=== PATIENT | female | born 1985 | race Caucasian/White ===

== ENCOUNTER 2021-05-01 18:00 | Emergency (ER) | payer OTHER ==
[2021-05-01] MEDS ORDERED: Lidocaine 1% w/Epinephrine 1:100K 20 ML VIAL ONE (18:40)
== END 2021-05-01 19:01 | disposition home or self-care (01) ==
LOC: CSHERS 18:00
DX: L02.31 Cutaneous abscess of buttock (principal); K21.9 Gastro-esophageal reflux disease without esophagitis; Z79.899 Other long term (current) drug therapy
CPT/HCPCS: 10060

== ENCOUNTER 2023-08-20 23:26 | Day surgery (SDC) | payer OTHER ==
[2023-08-21] MEDS ORDERED: Acetaminophen 500 MG TAB PO SCH (01:15)
== END 2023-08-21 02:34 | disposition home or self-care (01) ==
LOC: CSHLD/OP 23:26
PROVIDERS: ATTEND Obstetrics & Gynecology
DX: O99.891 Other specified diseases and conditions complicating pregnancy (principal); M54.50 Low back pain, unspecified; O41.8X20 Other specified disorders of amniotic fluid and membranes, second trimester, not applicable or unspecified; O44.02 Complete placenta previa NOS or without hemorrhage, second trimester; O99.342 Other mental disorders complicating pregnancy, second trimester; F41.9 Anxiety disorder, unspecified; F32.A Depression, unspecified; O99.012 Anemia complicating pregnancy, second trimester; N60.91 Unspecified benign mammary dysplasia of right breast; O92.29 Other disorders of breast associated with pregnancy and the puerperium; Z79.899 Other long term (current) drug therapy; Z90.49 Acquired absence of other specified parts of digestive tract; Z88.8 Allergy status to other drugs, medicaments and biological substances; Z88.2 Allergy status to sulfonamides; Z31.83 Encounter for assisted reproductive fertility procedure cycle; Z3A.27 27 weeks gestation of pregnancy
CPT/HCPCS: 76817

== ENCOUNTER 2023-10-18 19:03 | Day surgery (SDC) | payer OTHER ==
[2023-10-18 19:30] VITALS: BMI 41.1
[2023-10-18] MEDS ORDERED: hydrALAZINE 20 MG/ML VIAL SLOW IVP PRN (20:33)
== END 2023-10-18 23:30 | disposition home or self-care (01) ==
LOC: CSHLD/OP 19:03
PROVIDERS: ATTEND Advanced Practice Midwife
DX: O9A.213 Injury, poisoning and certain other consequences of external causes complicating pregnancy, third trimester (principal); O47.03 False labor before 37 completed weeks of gestation, third trimester; O09.813 Supervision of pregnancy resulting from assisted reproductive technology, third trimester; O99.613 Diseases of the digestive system complicating pregnancy, third trimester; K21.9 Gastro-esophageal reflux disease without esophagitis; O99.343 Other mental disorders complicating pregnancy, third trimester; F41.9 Anxiety disorder, unspecified; F32.A Depression, unspecified; O99.519 Diseases of the respiratory system complicating pregnancy, unspecified trimester; J45.909 Unspecified asthma, uncomplicated; O36.63X0 Maternal care for excessive fetal growth, third trimester, not applicable or unspecified; O09.523 Supervision of elderly multigravida, third trimester; O34.13 Maternal care for benign tumor of corpus uteri, third trimester; O69.89X0 Labor and delivery complicated by other cord complications, not applicable or unspecified; O40.3XX0 Polyhydramnios, third trimester, not applicable or unspecified; Z3A.36 36 weeks gestation of pregnancy; Z87.59 Personal history of other complications of pregnancy, childbirth and the puerperium; Z79.82 Long term (current) use of aspirin; Z79.899 Other long term (current) drug therapy; Z90.49 Acquired absence of other specified parts of digestive tract; Z98.890 Other specified postprocedural states; Z88.2 Allergy status to sulfonamides; Z88.8 Allergy status to other drugs, medicaments and biological substances
CPT/HCPCS: 76819; 99282

== ENCOUNTER 2023-11-10 18:00 | Inpatient (IN) | payer OTHER ==
[2023-11-10 18:32] VITALS: BMI 41.6
[2023-11-10] MEDS ORDERED: Methylergonovine 0.2 MG/ML VIAL IM PRN (20:00)
[2023-11-10] MEDS ORDERED: Lidocaine 1% (PF) 30 ML VIAL SC PRN (20:00)
[2023-11-10] MEDS ORDERED: Misoprostol 200 MCG TAB PR PRN (20:00)
[2023-11-10] MEDS ORDERED: Diphenoxylate HCl/Atropine Tablet PO PRN ×2 (20:00)
[2023-11-10] MEDS ORDERED: HYDROcodone/Acetaminophen 5/325 mg Tablet PO PRN (20:00)
[2023-11-10] MEDS ORDERED: Carboprost 250 MCG/ML AMP IM PRN (20:00)
[2023-11-10] MEDS ORDERED: Tranexamic Acid 1,000 MG/10 ML VIAL IVP PRN (20:00)
[2023-11-10] MEDS ORDERED: Butorphanol Tartrate 1 MG/ML VIAL SLOW IVP PRN (20:00)
[2023-11-10] MEDS ORDERED: Ibuprofen 800 MG TAB PO PRN (20:00)
[2023-11-10] MEDS ORDERED: Oxytocin 30 units/NS 500 ML 500 ML IV SCH (20:00)
[2023-11-10] MEDS ORDERED: hydrALAZINE 20 MG/ML VIAL SLOW IVP PRN (20:00)
[2023-11-10] MEDS: Lactated Ringer's 1,000 ML IV SCH (20:22)
[2023-11-10] MEDS: Misoprostol 100 MCG TAB VAG SCH (20:22)
[2023-11-10 20:33] LABS: Hematocrit 35.2 % (34.9-44.5); Hemoglobin 11.8 g/dL (12.0-15.5); Mean Corpuscular HGB CONC 33.5 g/dL (32.0-36.0); Mean Corpuscular Hemoglobin 29.1 pg (27.0-33.0); Mean Corpuscular Volume 86.9 fL (81.6-98.3); Mean Platelet Volume 10.1 fL (7.4-10.4); Platelet Count 300 10x3/uL (150-450); RBC Distribution Width 13.4 % (11.5-14.5); Red Blood Cell (RBC) Count 4.05 10x6/uL (3.90-5.03); White Blood Cell (WBC) Count 10.8 10x3/uL (3.5-10.5)
[2023-11-10 20:41] LABS: ALT (SGPT) 26 U/L (8-55); AST (SGOT) 25 U/L (5-34); Albumin 2.4 g/dL (3.5-5.0); Alkaline Phosphatase 131 U/L (40-110); Anion Gap 13 mmol/L (10-20); BUN (Urea Nitrogen) 12 mg/dL (7.0-18.7); Bilirubin, Total 0.3 mg/dL (0.2-1.2); Calc. Creatinine Clearance 205 mL/min (70-130); Calcium 9.6 mg/dL (7.8-10.44); Carbon Dioxide 20 mmol/L (22-29); Chloride 105 mmol/L (98-107); Estimated GFR 114; Glucose 109 mg/dL (70-105); Potassium 3.9 mmol/L (3.5-5.1); Protein, Total 6.4 g/dL (6.0-8.3); Sodium 134 mmol/L (136-145)
[2023-11-10] MEDS: HYDROcodone/Acetaminophen 5/325 mg Tablet PO PRN (20:46)
[2023-11-10 22:06] LABS: Syphilis Antibody Nonreactive (Nonreactive); Syphilis Antibody Index 0.05 S/CO (<1.00 Non-Reactive)
[2023-11-10 22:08] LABS: HBsAg Index 0.18 S/CO (0-0.99); Hep B Surf Ag - L&D Non-Reactive S/CO (NonReactive)
[2023-11-10] MEDS: Pantoprazole DR 40 MG TAB PO SCH (22:45)
[2023-11-10] MEDS: Escitalopram Oxalate 10 mg Tablet PO SCH (22:46)
[2023-11-11] MEDS: Acetaminophen 325 MG TAB PO SCH (01:17)
[2023-11-11] MEDS ORDERED: HYDROcodone/Acetaminophen 5/325 mg Tablet PO PRN (09:14)
[2023-11-11] MEDS: HYDROcodone/Acetaminophen 5/325 mg Tablet PO PRN (10:17)
[2023-11-11] MEDS: BuPROPion XL 150 MG ER.TAB PO SCH (10:57)
[2023-11-11] MEDS: Misoprostol 100 MCG TAB VAG SCH (10:59)
[2023-11-11] MEDS: Pantoprazole DR 40 MG TAB PO SCH (12:22)
[2023-11-11] MEDS: Oxytocin 30 units/NS 500 ML 500 ML IV SCH (14:30)
[2023-11-11] MEDS: Ondansetron PF 4 MG/2 ML Vial IVP PRN (15:03)
[2023-11-12] MEDS: fentaNYL/Ropivacaine Epidural 100 ML ONE (00:47)
[2023-11-12] MEDS ORDERED: Moisturizing Cream (Eucerin) 113 GM JAR TOP PRN ×2 (00:51→09:09)
[2023-11-12] MEDS ORDERED: Ondansetron PF 4 MG/2 ML Vial IVP PRN ×3 (00:51→09:09)
[2023-11-12] MEDS ORDERED: Promethazine HCl 25 MG/ML VIAL IM PRN (00:51)
[2023-11-12] MEDS ORDERED: diphenhydrAMINE 50 MG/ML VIAL IVP PRN ×2 (00:51→09:09)
[2023-11-12] MEDS ORDERED: Naloxone HCl 0.4 mg/ml Vial IVP PRN ×4 (00:51→09:09)
[2023-11-12] MEDS ORDERED: Acetaminophen 325 MG TAB PO PRN (00:51)
[2023-11-12] MEDS ORDERED: ePHEDrine Sulfate 50 MG/10 ML VIAL SLOW IVP PRN (00:51)
[2023-11-12] MEDS ORDERED: Lactated Ringer's 500 ML IV PRN (00:51)
[2023-11-12] MEDS ORDERED: Communication Order-Pharmacy FS SCH ×2 (01:00→09:15)
[2023-11-12] MEDS ORDERED: fentaNYL 2 mcg/Ropivacaine 0.2% Epidural 100 ML CADD EPIDURAL SCH (01:00)
[2023-11-12] MEDS ORDERED: Bicitra 30 ML UDCUP PO PRN (07:05)
[2023-11-12] MEDS ORDERED: Famotidine/PF 20 mg/2ml Vial SLOW IVP PRN (07:05)
[2023-11-12 07:12] LABS: Analyzer IN Cardio CS NICU; RapidComm Collect By CBN
[2023-11-12] MEDS ORDERED: Azithromycin 500 MG in Sodium Chloride 0.9% 250 ML 250 ML IVPB SCH (07:15)
[2023-11-12] MEDS ORDERED: CEFAZOLIN 2 GM in Sodium Chloride 0.9% 100 ML IVPB SCH (07:15)
[2023-11-12 07:18] LABS: Analyzer IN Cardio CS NICU; RapidComm Collect By CBN
[2023-11-12] MEDS ORDERED: Pantoprazole DR 40 MG TAB PO SCH (09:00)
[2023-11-12] MEDS ORDERED: Morphine 4 MG/ML VIAL SLOW IVP PRN (09:09)
[2023-11-12] MEDS ORDERED: fentaNYL 50 mcg/mL 1 mL Vial SLOW IVP PRN (09:09)
[2023-11-12] MEDS ORDERED: Naloxone HCl 0.4 mg/ml Vial IV PRN (09:09)
[2023-11-12] MEDS ORDERED: Meperidine HCl/PF 25 MG (1 mL) VIAL SLOW IVP PRN (09:09)
[2023-11-12] MEDS ORDERED: Ketorolac Tromethamine 30 MG (1 mL) VIAL IVP SCH (09:15)
[2023-11-12 10:12] LABS: D-Dimer Test 2.92 mcg/mL (0.19-0.50); PTT 28.5 sec (22.0-33.0); Prothrombin Time 10.4 sec (9.5-12.1)
[2023-11-12] MEDS ORDERED: diphenhydrAMINE 25 MG CAP PO PRN (11:22)
[2023-11-12] MEDS ORDERED: Bisacodyl 10 MG SUPP PR PRN (11:22)
[2023-11-12] MEDS ORDERED: hydrALAZINE 20 MG/ML VIAL SLOW IVP PRN (11:22)
[2023-11-12] MEDS ORDERED: Lanolin Ointment 7 GM TUBE TOP PRN (11:22)
[2023-11-12] MEDS: Pantoprazole DR 40 MG TAB PO SCH (12:37)
[2023-11-12] MEDS: Azithromycin 500 MG VIAL ONE (12:37)
[2023-11-12] MEDS: Misoprostol 200 MCG TAB ONE (12:37)
[2023-11-12] MEDS: CEFAZOLIN 2 GM VIAL ONE (12:37)
[2023-11-12] MEDS: Dexamethasone 4 mg/ml Vial ONE (12:37)
[2023-11-12] MEDS: Carboprost 250 MCG/ML AMP ONE (12:37)
[2023-11-12] MEDS: Methylergonovine 0.2 MG/ML VIAL ONE (12:37)
[2023-11-12] MEDS: Escitalopram Oxalate 10 mg Tablet PO SCH ×2 (12:37→21:56)
[2023-11-12] MEDS: Tranexamic Acid 1,000 MG/10 ML VIAL ONE (12:38)
[2023-11-12] MEDS: Oxytocin 10 UNITS/ML VIAL ONE (12:38)
[2023-11-12] MEDS: Morphine PF 10 MG/10 ML VIAL ONE (12:38)
[2023-11-12] MEDS: Boostrix 0.5 ML (Tdap) VIAL (>/=7 yrs of age) IM ONE (12:38)
[2023-11-12] MEDS: Docusate 100 MG CAP PO SCH ×2 (12:38→21:35)
[2023-11-12] MEDS: PHENYLEPHRINE-NS 100 MCG/ML 10 ML SYRINGE ONE (12:38)
[2023-11-12] MEDS: Ferrous Sulfate 325 MG TAB PO SCH ×2 (12:38→21:34)
[2023-11-12] MEDS: BuPROPion XL 150 MG ER.TAB PO SCH (12:39)
[2023-11-12] MEDS: Prenatal Vitamin 1 TAB PO SCH (12:39)
[2023-11-12] MEDS: Ondansetron PF 4 MG/2 ML Vial ONE (12:41)
[2023-11-12] MEDS ORDERED: Bupivacaine PF 0.5% 30 ML VIAL ONE (13:00)
[2023-11-12] MEDS ORDERED: Lidocaine 2% MPF 10 ML AMP (For Epidural Use) ONE (13:00)
[2023-11-12] MEDS: Enoxaparin 40 MG (0.4 mL) SYRINGE SC SCH (16:11)
[2023-11-12] MEDS: Ketorolac Tromethamine 30 MG (1 mL) VIAL IVP PRN (16:16)
[2023-11-12] MEDS ORDERED: HYDROcodone/Acetaminophen 5/325 mg Tablet PO PRN (21:15)
[2023-11-13 03:57] LABS: Hematocrit 29.9 % (34.9-44.5); Hemoglobin 10.4 g/dL (12.0-15.5); Mean Corpuscular HGB CONC 34.8 g/dL (32.0-36.0); Mean Corpuscular Hemoglobin 30.6 pg (27.0-33.0); Mean Corpuscular Volume 87.9 fL (81.6-98.3); Platelet Count 241 10x3/uL (150-450); RBC Distribution Width 13.2 % (11.5-14.5); White Blood Cell (WBC) Count 18.4 10x3/uL (3.5-10.5)
[2023-11-13] MEDS: Prenatal Vitamin 1 TAB PO SCH (08:40)
[2023-11-13] MEDS: HYDROcodone/Acetaminophen 5/325 mg Tablet PO PRN (08:53)
[2023-11-13] MEDS: Ondansetron PF 4 MG/2 ML Vial IVP PRN (10:09)
[2023-11-13] MEDS: Simethicone Chewable 80 MG TAB PO PRN (13:14)
[2023-11-13] MEDS: Ibuprofen 800 MG TAB PO SCH (13:15)
[2023-11-13] MEDS: Enoxaparin 40 MG (0.4 mL) SYRINGE SC SCH (21:15)
[2023-11-14] MEDS: Polyethylene Glycol 3350 17 GM Packet PO SCH ×3 (08:47→21:51)
[2023-11-14] MEDS: Senokot 8.6 MG TAB PO SCH (08:47)
[2023-11-14] MEDS: Loratadine 10 MG TAB PO PRN (12:14)
[2023-11-14] MEDS: Famotidine 20 MG TAB PO PRN (14:07)
[2023-11-14] MEDS: Lactated Ringer's 1,000 ML IV SCH (16:41)
[2023-11-14] MEDS: Acetaminophen 500 MG TAB PO SCH (16:48)
[2023-11-14] MEDS: Senokot S 8.6-50 MG TAB PO SCH (21:51)
[2023-11-14] MEDS: Ketorolac Tromethamine 30 MG (1 mL) VIAL IVP PRN (23:23)
[2023-11-15] MEDS: Pantoprazole 40 MG VIAL IVP SCH ×2 (00:48→08:54)
[2023-11-15 06:00] LABS: Anion Gap 16 mmol/L (10-20); BUN (Urea Nitrogen) 7 mg/dL (7.0-18.7); Calc. Creatinine Clearance 205 mL/min (70-130); Calcium 8.8 mg/dL (7.8-10.44); Carbon Dioxide 21 mmol/L (22-29); Chloride 106 mmol/L (98-107); Estimated GFR 114; Glucose 85 mg/dL (70-105); Magnesium 1.8 mg/dL (1.6-2.6); Potassium 3.6 mmol/L (3.5-5.1); Sodium 139 mmol/L (136-145)
[2023-11-15] MEDS: Metoclopramide HCl 10 MG TAB PO SCH (08:53)
[2023-11-15] MEDS ORDERED: Pantoprazole 40 MG VIAL IVP SCH (09:00)
[2023-11-15] MEDS: Bisacodyl 10 MG SUPP PR SCH (12:40)
[2023-11-15] MEDS: Metoclopramide HCl 10 MG TAB PO PRN (15:36)
[2023-11-15] MEDS: Senokot 8.6 MG TAB PO SCH (16:28)
[2023-11-16] MEDS: Ibuprofen 600 MG TAB PO SCH (10:01)
[2023-11-16] MEDS: Ferrous Sulfate 325 MG TAB PO SCH (11:59)
[2023-11-16] MEDS: Metoclopramide HCl 10 MG (2 mL) VIAL IVP SCH (12:38)
[2023-11-17] MEDS: Ondansetron PF 4 MG/2 ML Vial ONE (01:57)
[2023-11-17 03:48] LABS: Anion Gap 14 mmol/L (10-20); BUN (Urea Nitrogen) 9 mg/dL (7.0-18.7); Calc. Creatinine Clearance 208 mL/min (70-130); Calcium 8.6 mg/dL (7.8-10.44); Carbon Dioxide 23 mmol/L (22-29); Chloride 103 mmol/L (98-107); Estimated GFR 114; Glucose 96 mg/dL (70-105); Magnesium 1.9 mg/dL (1.6-2.6); Potassium 3.4 mmol/L (3.5-5.1); Sodium 137 mmol/L (136-145)
[2023-11-17] MEDS ORDERED: Calcium Carbonate 500 MG ChewTAB PO PRN (07:56)
[2023-11-17] MEDS: Potassium Chloride 20 MEQ in Premix 1 BAG IVPB SCH (08:09)
[2023-11-17] MEDS: Polyethylene Glycol 3350 17 GM Packet PO SCH (08:10)
[2023-11-17] MEDS: Pantoprazole DR 40 MG TAB PO SCH (08:11)
[2023-11-17] MEDS: Ondansetron ODT 4 MG TAB PO PRN (08:31)
[2023-11-17] MEDS: Metoclopramide HCl 10 MG TAB PO PRN (12:24)
[2023-11-17] MEDS ORDERED: Metoclopramide HCl 10 MG (2 mL) VIAL IVP PRN (12:39)
[2023-11-17] MEDS ORDERED: Morphine 2 MG/ML VIAL SLOW IVP PRN (13:02)
[2023-11-17] MEDS: Pantoprazole 40 MG VIAL IVP SCH ×2 (13:31→21:12)
[2023-11-17] MEDS: Potassium Chloride 20 MEQ, Admixture Fee 1 EACH in Lactated Ringer's 1,000 ML IV SCH (14:21)
[2023-11-17] MEDS: Ketorolac Tromethamine 30 MG (1 mL) VIAL IVP PRN (14:30)
[2023-11-17] MEDS ORDERED: Acetaminophen 500 MG TAB PO PRN (16:50)
[2023-11-17] MEDS ORDERED: Pantoprazole DR 40 MG TAB PO SCH (21:00)
[2023-11-17] MEDS ORDERED: Famotidine 20 MG TAB PO SCH (21:00)
[2023-11-17] MEDS: Bisacodyl 10 MG SUPP PR SCH (21:13)
[2023-11-18] MEDS: Ondansetron PF 4 MG/2 ML Vial IVP PRN (01:15)
[2023-11-18] MEDS: Simethicone Chewable 80 MG TAB PO PRN (03:02)
[2023-11-18 03:23] LABS: #Basophils 0.02 10x3/uL (0.0-0.2); #Eosinphils 0.28 10x3/uL (0.0-0.5); #Monocytes 1.01 10x3/uL (0.0-1.1); #Neutrophils 7.83 10x3/uL (1.5-8.4); %Basophils 0.2 % (0.0-2.0); %Eosinophils 2.6 % (0.0-6.0); %Monocytes 9.5 % (0.0-10.0); %Neutrophils 73.8 % (40.0-75.0); Hematocrit 28.1 % (34.9-44.5); Hemoglobin 9.6 g/dL (12.0-15.5); Mean Corpuscular HGB CONC 34.2 g/dL (32.0-36.0); Mean Corpuscular Hemoglobin 29.6 pg (27.0-33.0); Mean Corpuscular Volume 86.7 fL (81.6-98.3); Mean Platelet Volume 9.4 fL (7.4-10.4); Platelet Count 407 10x3/uL (150-450); RBC Distribution Width 12.8 % (11.5-14.5); Red Blood Cell (RBC) Count 3.24 10x6/uL (3.90-5.03); White Blood Cell (WBC) Count 10.6 10x3/uL (3.5-10.5)
[2023-11-18 04:10] LABS: ALT (SGPT) 22 U/L (8-55); AST (SGOT) 20 U/L (5-34); Alkaline Phosphatase 72 U/L (40-110); Anion Gap 13 mmol/L (10-20); BUN (Urea Nitrogen) 9 mg/dL (7.0-18.7); Bilirubin, Total 0.3 mg/dL (0.2-1.2); Calc. Creatinine Clearance 211 mL/min (70-130); Calcium 8.1 mg/dL (7.8-10.44); Carbon Dioxide 20 mmol/L (22-29); Chloride 106 mmol/L (98-107); Estimated GFR 114; Globulin 3.1 g/dL (2.4-3.5); Glucose 82 mg/dL (70-105); Potassium 3.4 mmol/L (3.5-5.1); Protein, Total 5.1 g/dL (6.0-8.3); Sodium 136 mmol/L (136-145)
[2023-11-18] MEDS ORDERED: Ondansetron ODT 4 MG TAB PO PRN (07:07)
[2023-11-18] MEDS ORDERED: Polyethylene Glycol 3350 17 GM Packet PO PRN (07:10)
[2023-11-18] MEDS ORDERED: Metoclopramide HCl 10 MG TAB PO PRN (07:10)
[2023-11-18 07:49] VITALS: BP 124/68; TEMP 98.8
[2023-11-18] MEDS: Enoxaparin 40 MG (0.4 mL) SYRINGE SC SCH (09:21)
[2023-11-18] MEDS: Pantoprazole DR 40 MG TAB PO SCH (09:21)
[2023-11-18] MEDS: Ibuprofen 600 MG TAB PO SCH (09:22)
[2023-11-18] MEDS: Acetaminophen 500 MG TAB PO SCH (12:23)
[2023-11-19] MEDS ORDERED: Ibuprofen 800 MG TAB PO SCH (22:00)
== END 2023-11-18 17:20 | disposition home or self-care (01) | DRG 787 ==
LOC: CSHLD 18:13 → CSHANTE 11-12 10:44
PROVIDERS: ADMIT Obstetrics & Gynecology; ATTEND Obstetrics & Gynecology
PROC: 10D00Z1 Extraction of Products of Conception, Low, Open Approach (ICD-10-PCS; principal; 2023-11-12)
DX: O76 Abnormality in fetal heart rate and rhythm complicating labor and delivery (principal); K56.7 Ileus, unspecified; K91.89 Other postprocedural complications and disorders of digestive system; O72.1 Other immediate postpartum hemorrhage; O99.62 Diseases of the digestive system complicating childbirth; O99.214 Obesity complicating childbirth; Z37.0 Single live birth; K21.9 Gastro-esophageal reflux disease without esophagitis; G47.33 Obstructive sleep apnea (adult) (pediatric); Z3A.39 39 weeks gestation of pregnancy; Z88.2 Allergy status to sulfonamides; Z88.8 Allergy status to other drugs, medicaments and biological substances; Z90.49 Acquired absence of other specified parts of digestive tract; Z79.899 Other long term (current) drug therapy; Z79.82 Long term (current) use of aspirin; Z87.59 Personal history of other complications of pregnancy, childbirth and the puerperium; O99.63 Diseases of the digestive system complicating the puerperium; E87.6 Hypokalemia; O99.285 Endocrine, nutritional and metabolic diseases complicating the puerperium; O13.5 Gestational [pregnancy-induced] hypertension without significant proteinuria, complicating the puerperium
CPT/HCPCS: 36415; 51702; 71045; 74018; 80048; 80053; 82570; 82805; 83735; 84156; 85025; 85027; 85049; 85300; 85362; 85384; 85610; 85730; 86780; 86850; 86900; 86901; 87340; C9113; J0665; J1100; J1650; J1885; J2274; J2405; J2590; J2765; J3480; J7120; Q0162

== ENCOUNTER 2023-11-25 17:46 | Emergency (ER) | payer OTHER ==
[2023-11-25 19:04] LABS: #Basophils 0.04 10x3/uL (0.0-0.2); #Eosinphils 0.42 10x3/uL (0.0-0.5); #Monocytes 0.63 10x3/uL (0.0-1.1); #Neutrophils 7.12 10x3/uL (1.5-8.4); %Basophils 0.4 % (0.0-2.0); %Eosinophils 4.2 % (0.0-6.0); %Lymphocytes 16.9 % (18.0-47.0); %Monocytes 6.3 % (0.0-10.0); %Neutrophils 70.9 % (40.0-75.0); Hematocrit 30.8 % (34.9-44.5); Hemoglobin 10.4 g/dL (12.0-15.5); Mean Corpuscular HGB CONC 33.8 g/dL (32.0-36.0); Mean Corpuscular Hemoglobin 29.7 pg (27.0-33.0); Mean Platelet Volume 9.2 fL (7.4-10.4); Platelet Count 539 10x3/uL (150-450)
[2023-11-25 19:18] LABS: ALT (SGPT) 20 U/L (8-55); AST (SGOT) 17 U/L (5-34); Albumin 2.8 g/dL (3.5-5.0); Alkaline Phosphatase 76 U/L (40-110); Anion Gap 12 mmol/L (10-20); BUN (Urea Nitrogen) 8 mg/dL (7.0-18.7); Bilirubin, Total 0.2 mg/dL (0.2-1.2); Calc. Creatinine Clearance 0 mL/min (70-130); Calcium 8.9 mg/dL (7.8-10.44); Carbon Dioxide 25 mmol/L (22-29); Chloride 107 mmol/L (98-107); Estimated GFR 102; Globulin 3.4 g/dL (2.4-3.5); Glucose 83 mg/dL (70-105); Lipase 57 U/L (8-78); Potassium 3.7 mmol/L (3.5-5.1); Protein, Total 6.2 g/dL (6.0-8.3); Sodium 140 mmol/L (136-145)
[2023-11-25 20:01] LABS: Bilirubin Neg (Negative); Blood, Urine 150 (Negative); Clarity Clear (Clear); Glucose, Urine (Dipstick) Normal (Negative); Ketone, Urine Negative (Negative); Leukocyte 25 (Negative); Nitrite Negative (Negative); Protein, Urine (Dipstick) Negative (Neg-Trace); Specific Gravity, Urine 1.005 (1.005-1.030); Urobilinogen Normal mg/dL (Less than 2)
[2023-11-25] MEDS ORDERED: Ketorolac Tromethamine 30 MG (1 mL) VIAL ONE (20:17)
[2023-11-25] MEDS ORDERED: Acetaminophen 325 MG TAB ONE (20:23)
[2023-11-25 20:26] LABS: Bacteria/HPF None Seen HPF (None Seen); CAUTI Indications for Culture Pregnancy; RBC/HPF 0-3 HPF (0-3); Squamous Epithelial None Seen HPF (0-3); WBC/HPF None Seen HPF (0-3)
[2023-11-25 20:29] LABS: Urine Culture Reflex Yes Yes
== END 2023-11-25 20:30 | disposition home or self-care (01) ==
LOC: CSHERS 17:46
DX: O99.891 Other specified diseases and conditions complicating pregnancy (principal); R51.9 Headache, unspecified; O09.511 Supervision of elderly primigravida, first trimester; Z3A.01 Less than 8 weeks gestation of pregnancy
CPT/HCPCS: 36415; 80053; 81001; 82570; 83690; 84156; 85025; 87086; 96374; J1885

== ENCOUNTER 2024-07-06 19:42 | Emergency (ER) | payer OTHER | END 2024-07-06 21:56 | disposition home or self-care (01) | LOC: CSHERS 19:42 | DX: L03.011 Cellulitis of right finger (principal) | CPT/HCPCS: 99283 ==